=== PATIENT | female | born 1985 | race Caucasian/White ===

== ENCOUNTER 2018-04-17 00:41 | Emergency (ER) | payer SELFPAY ==
[~2018-04-17] VITALS: Ht 157.5 cm; Wt 107.8 kg
--- NOTE | 2018-04-17 01:04 | NUR ---
LAB AT BEDSIDE FOR BLOOD DRAW, [facility] TECH WAITING OUTSIDE ROOM. VSS AND WILL CONT TO MONITOR.
[2018-04-17 01:12] LABS: BASOPHILS # (AUTO) 0.04 x10^3/uL (0-0.1); BASOPHILS % (AUTO) 1 % (0-1); EOSINOPHILS # (AUTO) 0.18 x10^3/uL (0-0.4); EOSINOPHILS % (AUTO) 2 % (1-7); LYMPHOCYTES # (AUTO) 2.75 x10^3/uL (1-3.4); LYMPHOCYTES % (AUTO) 31 % (22-44); MD NO; MEAN CORPUSCULAR HGB CONC 35.3 g/dL (32.4-35.8); MEAN CORPUSCULAR VOLUME 96.2 fL (80-100); MEAN PLATELET VOLUME 8.6 fL (7.4-10.4); MONOCYTES # (AUTO) 0.68 x10^3/uL (0.2-0.8); MONOCYTES % (AUTO) 8 % (2-9); NEUTROPHILS # (AUTO) 5.19 x10^3/uL (1.8-6.8); NEUTROPHILS % (AUTO) 59 % (42-75); PLATELET COUNT 331 x10^3/uL (130-400); RED BLOOD COUNT 4.36 x10^6/uL (3.82-5.3)
[2018-04-17 01:21] LABS: ALANINE AMINOTRANSFERASE 64 U/L (12-78); ALBUMIN 3.7 g/dL (3.4-5.0); ANION GAP 8 mmol/L (5-15); CALCIUM 9.3 mg/dL (8.5-10.1); CHLORIDE 106 mmol/L (98-107)
[2018-04-17 01:26] LABS: ALKALINE PHOSPHATASE 64 U/L (45-117); BILIRUBIN,TOTAL 0.2 mg/dL (0.2-1.0); TOTAL PROTEIN 7.3 g/dL (6.4-8.2)
[2018-04-17] MEDS ORDERED: MORPHINE SULFATE 4 MG/ML, 1ML ONE ×2 (01:41→02:25)
[2018-04-17] MEDS ORDERED: ONDANSETRON 2MG/ML, 2ML ONE (01:41)
[2018-04-17] MEDS: MORPHINE SULFATE 4 MG/ML, 1ML IVPush PRN ×2 (02:00→02:28)
[2018-04-17] MEDS ORDERED: ONDANSETRON 2MG/ML, 2ML IVPush ONE (02:00)
[2018-04-17 02:12] LABS: MICROSCOPIC INDICATED
[2018-04-17 02:29] LABS: CULTURE INDICATED? YES
[2018-04-17 02:37] VITALS: BP 168/87
--- NOTE | 2018-04-17 02:38 | NUR ---
PT FAMILY AT BEDSIDE. PT GIVEN 2ND DOSE OF MORPHINE AND STATES A DECREASE IN PAIN.
--- NOTE | 2018-04-17 02:57 | NUR ---
ALL RESULTS BACK. PT UP FOR RECHECK.
== END 2018-04-17 03:32 | disposition home or self-care (01) ==
LOC: ED 03:00
DX: N20.2 Calculus of kidney with calculus of ureter (principal); R10.32 Left lower quadrant pain
CPT/HCPCS: 36415; 76700; 76830; 80053; 81001; 83690; 84702; 85025; 87086; 96374; 96375; 99284; J2405